=== PATIENT | male | born 1950 | race Caucasian/White ===

== ENCOUNTER 2023-06-18 06:21 | Day surgery (SDC) | payer MEDICARE, SELFPAY ==
[2023-06-10 08:20] VITALS: BMI 37.6
[2023-06-18] VITALS (10 sets, daily range): BP systolic 109–134; BP diastolic 55–73; BMI 37.6
[2023-06-18] MEDS: CYSVIEW KIT 100 MG INTRAVES (09:35)
[2023-06-18 09:46] LABS: Urine Albumin Negative (Neg - Trace); Urine Bilirubin Negative (Negative); Urine Character Clear (Clear); Urine Color Yellow; Urine Glucose Negative (Negative); Urine Ketone Negative (Negative); Urine Leukocyte Negative (Negative); Urine Nitrite Negative (Negative); Urine Occult Blood 4+ (Negative); Urine Urobilinogen Negative (Neg - 1+); Urine pH 6.5 (5.0-9.0)
[2023-06-18] MEDS: NORMOSOL-R 1000 IV (09:52)
[2023-06-18 10:02] LABS: Urine Amorphous Seen; Urine Bacteria Few (Negative)
[2023-06-18] MEDS: SYRINGE NON-PUMP 50 ML IRRIG ×2 (13:18→13:19)
[2023-06-18] MEDS: SYRINGE NON-PUMP 50 MG IRRIG ×2 (13:18→13:19)
[2023-06-18] MEDS: Pyridium 200 MG PO (13:33)
[2023-06-18] MEDS: DETROL LA 4 MG PO (13:34)
== END 2023-06-18 15:24 | disposition home or self-care (01) ==
LOC: SDS 06:21
PROVIDERS: ATTENDING PHYSICIAN Specialist
DX: C67.9 Malignant neoplasm of bladder, unspecified (principal)
CPT/HCPCS: 52235; 88305; 88307; 81003; 81015; 87086; A9589

== ENCOUNTER → 2024-09-28 15:17 | Outpatient (REF) | payer MEDICARE, SELFPAY | LOC: RAD 15:17 | PROVIDERS: ATTENDING PHYSICIAN Specialist; FAMILY PHYSICIAN Family Medicine | DX: R31.0 Gross hematuria (principal); R31.29 Other microscopic hematuria | CPT/HCPCS: 76770 ==

== ENCOUNTER → 2024-10-19 12:58 | Outpatient (REF) | payer MEDICARE, SELFPAY | LOC: CLAB 12:58 | PROVIDERS: ATTENDING PHYSICIAN Specialist | DX: C67.9 Malignant neoplasm of bladder, unspecified (principal) | CPT/HCPCS: 88112 ==